=== PATIENT | female | born 1945 | race Caucasian/White ===

== ENCOUNTER 2021-05-04 08:30 | Day surgery (SDC) | payer MEDICARE, BC ==
[~2021-05-04 08:30] MED LIST: ALBU90OI; ASPI325; CHANTIX1 MG PO; Calicum 500+D1 EACH; Co Q-1010 MG; FISH OIL 1,2001 EAC7 PO; LOSA50 PO; LOSHYD100; MULT50L; PARO20 PO; ROSU10TA PO; TIOT18; VITAMIN D310 MC4 PO
--- NOTE | 2021-05-04 09:46 | NUR ---
Ambulatory in Day Surgery. History, Chart, Medications and Allergies reviewed before start of procedure. Patient confirms NPO status and agrees with scheduled surgery. Pre-Op teaching done. Pt verbalizes understanding. Patient States Post-Procedure ride home has been arranged. PT WITH SLIGHT EXPIRATORY WHEEZE, WILL DISCUSS WITH DR FAULKNER.
--- NOTE | 2021-05-04 10:10 | NUR ---
PT HAVING [place] TX.
--- NOTE | 2021-05-04 10:30 | NUR ---
05/04/21 1030 Gustabo Burden History, Chart, Medications and Allergies reviewed before start of procedure. MONITOR INTACT WITH CONTINUOUS PULSE OXIMETRY AND INTERMITTENT BP. 3-LEAD EKG REVIEWED WITH PHYSICIAN PRIOR TO START OF PROCEDURE. O2 VIA N/C INTACT THROUGHOUT SEDATION/PROCEDURE. Bite Block Placed. PATIENT DETERMINED TO BE ASA APPROPRIATE FOR PROPOFOL SEDATION PRIOR TO START OF PROCEDURE BY DR. FAULKNER.
--- NOTE | 2021-05-04 11:39 | NUR ---
REPORT OFF TO TIMUR Gutiérrez WHO IS ASSUMING CARE OF PT AT THIS TIME.
--- NOTE | 2021-05-04 11:53 | NUR ---
RECEIVED REPORT FROM VIELKA GLASER. ASSUMING CARE OF PT.
--- NOTE | 2021-05-04 12:00 | NUR ---
CALLED TO DR FAULKNER REGARDING PATIENTS STATUS. PATIENT HAVING INCREASE WORK OF BREATHING WITH SOB AND OCCASIONAL BRONCHIAL SPASMS. LUNGS WITH TIGHT EXPIRATORY WHEEZES. 02 2L/NC PLACED TO KEEP SATS GREATER THAN 90%; TITRATE PRN. NEW ORDERS PER DR FAULKNER TO GIVE SOLUMEDROL 60MG IV X1 AND WILL WRITE AN RX FOR PREDNISON FOR HOME. CONTINUE TO MONITOR AND TX PRN. REPORTED OFF TO TIMUR WLAKER.
--- NOTE | 2021-05-04 12:47 | NUR ---
REPORT TO VIELKA GLASER AND CARRINGTON VORA. PT RESTING COMFORTABLY IN GURNY. VSS
--- NOTE | 2021-05-04 12:54 | NUR ---
ASSUMED CARE. PATIENT RESTING QUIETLY AND ABLE TO TIRATE 02 DOWN TO 1L/NC. PATIENT STATES "FEELS BETTER". WILL DC 02/NC TO ROOM AIR TO KEEP SATS >90%. PATIENT REMAINS NPO STATUS 2 HRS POST PROCEDURE. WILL INTRODUCE C.L.'S TO SEE IF TOLERATES. CONTINUE TO MONITOR.
--- NOTE | 2021-05-04 14:41 | NUR ---
PATIENT ON ROOM AIR WITH SATS 91-92%. MILD SOB AT REST BUT PATIENT STATES "THIS IS NORMAL". INCENTIVE SPIROMETRE WAS GIVEN AND ONLY ABLE TO GET TO 500ML. INSTRUCTED/ENCOURAGE TO EXERCISE LUNGS EVERY 30 MINUTES TO 1 HR WHILE AWAKE. STABLE FOR DISCHARGE. Discharge instructions reviewed with patient. Patient verbalizes understanding. Copy given to patient to take home. NEW RX WRITTEN; PREDNISONE 20MG 2 TABS QD X4 DAYS, THEN 1 TAB QD X4 DAYS. PRESCRIPTION CALLED INTO [facility]. Discharged via wheelchair to private car for ride home.
== END 2021-05-04 14:51 | disposition home or self-care (01) ==
LOC: ORSCMMR 08:30 → ORD 09:30 → ORSCMMR 14:51
PROVIDERS: Internal Medicine Critical Care Medicine
PROC: 0BDH8ZX Extraction of Lung Lingula, Via Natural or Artificial Opening Endoscopic, Diagnostic (ICD-10-PCS; principal; 2021-05-04 09:30)
PROC: 0BD98ZX Extraction of Lingula Bronchus, Via Natural or Artificial Opening Endoscopic, Diagnostic (ICD-10-PCS; principal; 2021-05-04 09:30)
DX: R91.8 Other nonspecific abnormal finding of lung field (principal); C34.12 Malignant neoplasm of upper lobe, left bronchus or lung; F17.210 Nicotine dependence, cigarettes, uncomplicated; Z99.81 Dependence on supplemental oxygen; J44.9 Chronic obstructive pulmonary disease, unspecified; I10 Essential (primary) hypertension; G47.33 Obstructive sleep apnea (adult) (pediatric); Z79.899 Other long term (current) drug therapy
CPT/HCPCS: 88104; 88305; 88341; 88342; A9270; J0171; J2704; J2930; J7120

== ENCOUNTER 2021-11-30 12:15 | Emergency (ER) | payer MEDICARE, BC ==
[~2021-11-30] VITALS: Ht 154.9 cm; Wt 86.2 kg
[2021-11-30] MEDS ORDERED: TRAZ150T57 PO (12:29)
[2021-11-30] MEDS ORDERED: BUPROPION XL150 M1 PO (12:29)
[2021-11-30] MEDS ORDERED: ESCITALOPRAM 10 MG (12:30)
[2021-11-30 12:35] LABS: BASOPHILS ABSOLUTE AUTO 0.03 K/mm3 (0.00-0.23); BASOPHILS PERCENT AUTO 0 % (0-2); EOSINOPHILS ABSOLUTE AUTO 0.14 K/mm3 (0.00-0.68); EOSINOPHILS PERCENT AUTO 2 % (0-6); Hemoglobin 13.7 g/dL (11.5-16.0); IMMATURE GRAN ABSOLUTE AUTO 0.02 K/mm3 (0.00-0.10); IMMATURE GRAN PERCENT AUTO 0 % (0-1); LYMPHOCYTES ABSOLUTE AUTO 1.29 K/mm3 (0.84-5.20); LYMPHOCYTES PERCENT AUTO 16 % (21-46); MONOCYTES ABSOLUTE AUTO 0.46 K/mm3 (0.16-1.47); MONOCYTES PERCENT AUTO 6 % (4-13); Mean Corpuscular HGB 27.7 pg (26.0-34.0); Mean Corpuscular HGB Conc 32.6 g/dL (31.5-36.5); Mean Corpuscular Volume 85 fL (80-100); Mean Platelet Volume 8.4 fL (9.1-12.4); NEUTROPHILS ABSOLUTE AUTO 5.98 K/mm3 (1.96-9.15); NEUTROPHILS PERCENT AUTO 75 % (41-73); Platelet Count 242 K/mm3 (150-400); RDW Coefficient Variation 12.3 % (11.7-14.2); RDW Standard Deviation 37.4 fL (35.1-46.3); Red Blood Cell Count 4.94 M/mm3 (3.80-5.20); White Blood Cell Count 7.92 K/mm3 (4.00-11.30)
[2021-11-30 12:58] LABS: Alanine Aminotransfer (ALT/SGP 17 U/L (12-78); Albumin, Blood 3.2 g/dL (3.4-5.0); Albumin/Globulin Ratio 0.8 (0.8-1.8); Alk Phos 95 U/L (50-136); Anion Gap 8 mmol/L (6-16); Aspartate Aminotrans (AST/SGOT 28 U/L (12-37); Bilirubin, Total 0.9 mg/dL (0.1-1.0); Blood Urea Nitrogen 12 mg/dL (8-24); Bun/Creatinine Ratio 21.9 (12.0-20.0); CO2, Blood 24 mmol/L (21-32); Calcium, Blood 8.7 mg/dL (8.5-10.1); Chloride, Blood 105 mmol/L (98-108); Creatinine, Blood 0.55 mg/dL (0.40-1.00); Globulin, Blood 3.8 g/dL (2.2-4.0); Glomerular Filtration Rate >60 (60-); Glucose, Blood 81 mg/dL (70-99); Potassium, Blood 3.7 mmol/L (3.5-5.5); Sodium, Blood 137 mmol/L (136-145)
[2021-11-30 13:14] LABS: Creatine Kinase MB 4.4 ng/mL (0.0-3.6)
[2021-11-30] MEDS ORDERED: TRAM50 PO (13:54)
== END 2021-11-30 15:04 | disposition home or self-care (01) ==
LOC: ER 12:15
PROVIDERS: Emergency Medicine
DX: S40.012A Contusion of left shoulder, initial encounter (principal); S40.011A Contusion of right shoulder, initial encounter; M25.562 Pain in left knee; M25.551 Pain in right hip; I10 Essential (primary) hypertension; J44.9 Chronic obstructive pulmonary disease, unspecified; F17.210 Nicotine dependence, cigarettes, uncomplicated; Z88.0 Allergy status to penicillin; Z88.8 Allergy status to other drugs, medicaments and biological substances; Z79.82 Long term (current) use of aspirin; Z79.899 Other long term (current) drug therapy; W19.XXXA Unspecified fall, initial encounter
CPT/HCPCS: 72100; 73502; 73562-LT; 73562-RT; 80053; 82550; 82553; 85025; 96374; 99284-25; J1885

== ENCOUNTER 2021-11-30 15:11 | Emergency (ER) | payer MEDICARE, BC ==
[~2021-11-30] VITALS: Ht 154.9 cm; Wt 86.2 kg
[~2021-11-30 15:11] MED LIST changes: +BUPROPION XL150 M1 PO; +ESCITALOPRAM 10 MG; +TRAM50 PO; +TRAZ150T57 PO
== END 2021-11-30 16:05 | disposition home or self-care (01) ==
LOC: ER 15:11
DX: M54.50 Low back pain, unspecified (principal); I10 Essential (primary) hypertension; J44.9 Chronic obstructive pulmonary disease, unspecified; F17.210 Nicotine dependence, cigarettes, uncomplicated; Z79.899 Other long term (current) drug therapy
CPT/HCPCS: 99282

== ENCOUNTER 2021-12-30 15:21 | Emergency (ER) | payer MEDICARE, BC ==
[~2021-12-30] VITALS: Ht 154.9 cm; Wt 90.7 kg
[2021-12-30 18:55] LABS: Source, Urine Fem Cath
[2021-12-30 19:07] LABS: Bilirubin, Urine Neg (Neg); Blood, Urine Neg (Neg); Glucose Qualitative, Urine Neg (Neg); Ketones, Urine Neg (Neg); Leukocyte Esterase, Urine Neg (Neg); Nitrite, Urine Neg (Neg); Protein, Urine Neg (Neg); Specific Gravity, Urine 1.015 (1.003-1.022); Urobilinogen, Urine NORM (Normal)
[2021-12-30 19:10] LABS: Appearance, Urine Clear (Clear); Color, Urine Pale Yellow (P-Yellow)
[2021-12-30] MEDS ORDERED: CYCL10 PO (19:25)
[2021-12-30] MEDS ORDERED: KETO10 PO (19:25)
== END 2021-12-30 19:37 | disposition home or self-care (01) ==
LOC: ER 15:21
PROVIDERS: Physician Assistant
DX: M54.50 Low back pain, unspecified (principal); I10 Essential (primary) hypertension; J44.9 Chronic obstructive pulmonary disease, unspecified; F17.210 Nicotine dependence, cigarettes, uncomplicated
CPT/HCPCS: 72131; 81003; A9270; J1170; J1885; J3360